=== PATIENT | female | born 2000 | race African-American/Black ===

== ENCOUNTER 2024-04-19 12:11 | Emergency (ER) | payer SELFPAY ==
[2024-04-19 12:13] VITALS: BP 152/79
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
[2024-04-19 13:00] VITALS: BP 140/78
[2024-04-19 14:26] VITALS: BP 128/81
== END 2024-04-19 14:29 | disposition home or self-care (01) ==
LOC: EMR 12:11
PROVIDERS: EMERGENCY PHYSICIAN Emergency Medicine; FAMILY PHYSICIAN Internal Medicine
DX: S29.012A Strain of muscle and tendon of back wall of thorax, initial encounter (principal); V89.2XXA Person injured in unspecified motor-vehicle accident, traffic, initial encounter; Y92.410 Unspecified street and highway as the place of occurrence of the external cause
CPT/HCPCS: 99283; 71046; 72072